=== PATIENT | female | born 1995 | race Two or more races ===

== ENCOUNTER 2024-03-10 14:14 | Emergency (ER) | payer MEDICAID ==
[~2024-03-10] VITALS: Ht 154.9 cm; Wt 126.8 kg
[2024-03-10 14:16] VITALS: BP 130/84; PULSE 91; RESP 16; TEMP 98.7; O2SAT 99
[2024-03-10 16:39] LABS: STREP A SCREEN NEGATIVE (Neg)
[2024-03-10] MEDS ORDERED: METH4TAB81 PO (16:46)
== END 2024-03-10 16:54 | disposition home or self-care (01) ==
LOC: ER 14:14
DX: R22.1 Localized swelling, mass and lump, neck (principal); Z79.899 Other long term (current) drug therapy; Z20.822 Contact with and (suspected) exposure to COVID-19
CPT/HCPCS: 36415; 87081; 87811; 87880; 99283